=== PATIENT | female | born 1985 | race American Indian/Alaskan Native ===

== ENCOUNTER 2018-03-12 08:09 | Emergency (ER) | payer SELFPAY ==
[2018-03-12 08:57] VITALS: BP 114/47
--- NOTE | 2018-03-12 09:19 | Emergency Department Report ---
ED General Adult HPI - General Chief complaint: Urogenital-Female Stated complaint: BREAST PAIN/LUMP Time Seen by Provider: 03/12/18 09:15 Source: patient, RN notes reviewed Mode of arrival: Ambulatory Limitations: No Limitations - History of Present Illness Initial comments: This is a 32-year-old female who is not known to this provider previously, reports that she is not , denies chronic medical conditions. The patient presents to ER with a complaint of nontraumatic left sided breast pain, redness and swelling for 1 week. She reports this happened to her once 2 months ago, and resolved spontaneously. Her symptoms have been present and constant for one week, the pain increases with palpation and decreases with rest. She reports that her cousin in the age of 35 of breast cancer. To date, the patient has not had any outpatient screening for genetic counseling for breast cancer that she is aware of. She denies other symptoms. -: Gradual Location: left (breast) Radiation: non-radiation Quality: aching Consistency: constant Improves with: rest Worsens with: movement Associated Symptoms: denies other symptoms, rash. denies: confusion, chest pain , cough, diaphoresis, fever/chills, headaches, loss of appetite, malaise, nausea /vomiting, shortness of breath, syncope, weakness - Related Data Previous Rx's Medication Instructions Recorded Last Taken Type Acetaminophen [Tylenol Arthritis] 650 mg PO Q6HR PRN #30 tablet.er 03/12/18 Unknown Rx Cephalexin [Keflex] 500 mg PO Q6HR #20 capsule 03/12/18 Unknown Rx Ibuprofen [Motrin] 600 mg PO Q8H PRN #30 tablet 03/12/18 Unknown Rx Allergies Allergy/AdvReac Type Severity Reaction Status Date / Time No Known Allergies Allergy Verified 03/12/18 08:54 ED Review of Systems ROS: Stated complaint: BREAST PAIN/LUMP Other details as noted in HPI Constitutional: denies: fever, malaise Eyes: denies: eye discharge ENT: denies: epistaxis Respiratory: denies: cough Cardiovascular: denies: chest pain Genitourinary: denies: as per HPI Skin: rash, lesions ED Past Medical Hx - Past Medical History Previous Medical History?: No - Surgical History Past Surgical History?: No - Social History Smoking Status: Current Every Day Smoker Substance Use Type: None - Medications Home Medications: Home Medications Medication Instructions Recorded Confirmed Last Taken Type Acetaminophen [Tylenol Arthritis] 650 mg PO Q6HR PRN #30 tablet.er 03/12/18 Unknown Rx Cephalexin [Keflex] 500 mg PO Q6HR #20 capsule 03/12/18 Unknown Rx Ibuprofen [Motrin] 600 mg PO Q8H PRN #30 tablet 03/12/18 Unknown Rx ED Physical Exam - General Limitations: No Limitations General appearance: alert, in no apparent distress - Head Head exam: Present: atraumatic, normocephalic - Eye Eye exam: Present: normal appearance, EOMI. Absent: nystagmus - ENT ENT exam: Present: normal exam, normal orophraynx, mucous membranes moist, normal external ear exam - Neck Neck exam: Present: normal inspection, full ROM - Respiratory Respiratory exam: Present: normal lung sounds bilaterally, chest wall tenderness (on the inferior aspect of the [place] on the left, there is erythema. There is induration. There is no obvious fluctuance. Bilateral nipples are inverted), other (escorted by nurse Isabel Torres). Absent: respiratory distress - Cardiovascular Cardiovascular Exam: Present: regular rate, normal rhythm. Absent: systolic murmur, diastolic murmur, rubs, gallop - GI/Abdominal GI/Abdominal exam: Present: soft. Absent: distended, tenderness, guarding, rebound, rigid, pulsatile mass - Extremities Exam Extremities exam: Present: normal inspection, full ROM. Absent: calf tenderness - Back Exam Back exam: Present: normal inspection, full ROM. Absent: tenderness, CVA tenderness (R), paraspinal tenderness, vertebral tenderness - Neurological Exam Neurological exam: Present: alert, oriented X3, CN II-XII intact, normal gait, other (Extraocular movements intact. Tongue midline. No facial droop. Facial sensation intact to light touch in the V1, V2, V3 distribution bilaterally. 5 and 5 strength in 4 extremities.. Sensation is intact to light touch in 4 extremities.). Absent: motor sensory deficit - Psychiatric Psychiatric exam: Present: normal affect, normal mood - Skin Skin exam: Present: warm, erythema. Absent: rash ED Course Vital Signs 03/12/18 08:54 Temperature 98.3 F Pulse Rate 76 Respiratory 14 Rate Blood Pressure 114/47 O2 Sat by Pulse 100 Oximetry ED Medical Decision Making - Lab Data Vital Signs 03/12/18 08:54 Temperature 98.3 F Pulse Rate 76 Respiratory 14 Rate Blood Pressure 114/47 O2 Sat by Pulse 100 Oximetry - Medical Decision Making Differential diagnosis, including was not limited to: Cellulitis, malignancy, benign fibroadenoma's tissue of the breast Assessment and plan: 32-year-old female with a family history of breast cancer at a young age with left-sided redness and swelling. She is afebrile with reassuring vital signs. The patient will be started on warm compresses, Keflex , NSAIDs, and she will be referred to outpatient gynecology/breast surgeon to complete her workup. Critical care attestation.: If time is entered above; I have spent that time in minutes in the direct care of this critically ill patient, excluding procedure time. ED Disposition Clinical Impression: Breast pain Disposition: TO HOME OR SELFCARE Is pt being admited?: No Does the pt Need Aspirin: No Condition: Good Instructions: Breast Self-exam (ED), Breast Mass (ED) Additional Instructions: Take the pain medication as directed. Apply warm compresses to the breast as often as as needed for pain. Follow up as soon as possible with any of the listed gynecology groups, or the listed breast specialist for further outpatient evaluation. It is very important to closely follow-up as directed to exclude cancer, tumor, malignancy of the breast, given strong family history. Return to the ER right away with new pain, worsened pain, migration of pain, fevers, chills, lethargy, irritability, projectile vomiting, change in mental status, confusion, inability to tolerate liquids. Referrals: AMANDO COWAN MD [Staff Physician] - 3-5 Days [facility] [Provider Group] - 3-5 Days [facility] [Provider Group] - 3-5 Days [facility] [Provider Group] - 3-5 Days
[2018-03-12] MEDS ORDERED: MOTRIN PO ONE (09:23)
== END 2018-03-12 09:52 | disposition home or self-care (01) ==
LOC: ED 08:09
DX: N64.4 Mastodynia (principal); F17.200 Nicotine dependence, unspecified, uncomplicated
CPT/HCPCS: 99282